=== PATIENT | male | born 1960 | race Asian ===

== ENCOUNTER 2018-11-23 17:20 | Emergency (ER) | payer OTHER ==
[~2018-11-23] VITALS: Ht 175.3 cm; Wt 85.3 kg
[2018-11-23 17:32] VITALS: Ht 175.3 cm; Wt 85.3 kg
[2018-11-23 18:46] VITALS: BP 145/90
== END 2018-11-23 18:46 | disposition home or self-care (01) ==
LOC: ED 17:20
DX: H10.9 Unspecified conjunctivitis (principal); I10 Essential (primary) hypertension; Z98.890 Other specified postprocedural states